=== PATIENT | male | born 1990 | race Caucasian/White ===

== ENCOUNTER 2020-12-30 16:41 | Emergency (ER) | payer OTHER, SELFPAY ==
[2020-12-30 16:56] VITALS: BP 137/82; PULSE 83; RESP 20; TEMP 36.7; O2SAT 98
--- NOTE | 2020-12-30 16:56 | ED.SKABFB ---
HPI - Skin/Abscess/Foreign Bdy General Chief complaint: Skin/Abscess/Foreign Body Stated complaint: infection on right arm and leg Time Seen by Provider: 12/30/20 16:57 Source: patient and RN notes reviewed History of Present Illness HPI narrative: Patient is a 30-year-old male who presents the urgent care with complaints of painful sore to the right upper leg and right armpit region. Patient states that they started approximately 1 week ago and seem to be getting more painful and red. Patient states that he has had them in the past and they seem to have healed on their own well. Patient states he wears very heavy clothing and sweats a lot working at the [employer] and has been unable to keep them free of sweat. Patient states that he has been using peroxide spray to the area without any relief of healing. Denies of any fever, chills, nausea, vomiting. No other acute complaints. No acute distress noted. Patient aware of the plan of care. Some parts of this dictation were generated by voice recognition software and may contain typographical and/or grammatical inaccuracies. Related Data Home Medications Medication Instructions Recorded Confirmed escitalopram oxalate 10 mg PO DAILY 12/30/20 12/30/20 zolpidem [Ambien] 10 mg PO HS PRN 12/30/20 12/30/20 Allergies Allergy/AdvReac Type Severity Reaction Status Date / Time No Known Allergies Allergy Verified 12/30/20 16:57 Review of Systems Review of Systems: Narrative: CONSTITUTIONAL: Denies fever, chills, or sweats. EYES: Denies visual changes, redness, or discharge. ENT: Denies rhinorrhea, congestion, sore throat, or otalgia. CARDIOVASCULAR: Denies chest pain, palpitations, or edema. RESPIRATORY: Denies cough or dyspnea. GASTROINTESTINAL: Denies abdominal pain, nausea, vomiting, or diarrhea. GENITOURINARY: Denies dysuria or hematuria. SKIN: Reports of swollen painful skin infection to the right upper leg and right armpit MUSCULOSKELETAL: Denies back pain, joint pain, or myalgia. NEUROLOGIC: Denies headache, numbness, or weakness. All other systems reviewed are negative, except as documented in HPI. PMFSH Comments At the time of my signature, I reviewed and agree with the nursing past medical, surgical, social, and family history. There is no relevant family history pertinent to the patient complaint. Exam Narrative: Exam Narrative: GENERAL: This is a well-nourished, well-developed patient, in no apparent distress. HEAD: normocephalic, atraumatic. EYES: PERRL. Sclera clear/white. Vision is grossly intact. EARS: External ears normal NOSE: External nose normal with no obvious nasal discharge, nares without redness, no rhinorrhea. THROAT: Mucous membranes moist NECK: Neck supple SKIN: 4 x 4 centimeter tender firm draining abscess to the right upper inner thigh with 2 x 2 centimeter center erythema with 1 cm draining area. Multiple erythemic painful folliculitis to the right axilla NEURO: awake, alert, and oriented to person, place and time. There were no obvious focal neurologic abnormalities. EXTREMITIES: No clubbing, cyanosis, or edema. Course Vital Signs Vital signs: Vital Signs Temperature 98.0 F 12/30/20 16:56 Pulse Rate 83 12/30/20 16:56 Respiratory Rate 20 12/30/20 16:56 Blood Pressure 137/82 12/30/20 16:56 Pulse Oximetry 98 12/30/20 16:56 Temperature 98.0 F 12/30/20 16:56 Pulse Rate 83 12/30/20 16:56 Respiratory Rate 20 12/30/20 16:56 Blood Pressure 137/82 12/30/20 16:56 Pulse Oximetry 98 12/30/20 16:56 Reviewed MDM - Skin/Abscess/Foreign Bdy MDM Narrative Medical decision making narrative: Advised the patient to use prescription cream to the affected areas as directed. Applied twice a day, once in the morning and once in the evening. Try to change out the sweaty clothing during her workday if possible. Keep keep the affected area of the right upper leg covered while at work and keep it open to air while at home. Do not
== END 2020-12-30 17:15 | disposition home or self-care (01) ==
PROVIDERS: Emergency Provider Nurse Practitioner Family
DX: L73.9 Follicular disorder, unspecified (principal)
CPT/HCPCS: 99203; G0463